=== PATIENT | female | born 1960 | race Caucasian/White ===

== ENCOUNTER 2019-12-20 00:01 | Inpatient (IN) | payer OTHER, SELFPAY ==
[2019-12-20] MEDS ORDERED: diphenhydrAMINE 50 MG/ML VIAL ONE (00:21)
[2019-12-20 01:03] LABS: Bacteria/HPF None Seen HPF (None Seen); Bilirubin Negative (Negative); Blood, Urine 1+ (Negative); Clarity Clear (Clear); Glucose, Urine (Dipstick) Normal (Negative); Ketone, Urine Negative (Negative); Leukocyte Negative Leu/uL (Negative); Nitrite Negative (Negative); Protein, Urine (Dipstick) 10 mg/dL (Neg-Trace); RBC/HPF 0-3 HPF (0-3); Squamous Epithelial None Seen HPF (0-3); Urobilinogen Normal mg/dL (Less than 2); WBC/HPF 0-3 HPF (0-3); pH, Urine 5.5 (5.0-9.0)
[2019-12-20 01:04] LABS: Specific Gravity, Urine Greater than 1.060 (1.002-1.036)
[2019-12-20 01:13] LABS: Amphetamine Detected (NotDetected); Barbiturates Screen Not Detected (NotDetected); Benzodiazepine Screen Detected (NotDetected); Cocaine Metabolite Screen Not Detected (NotDetected); Medtox Control Line Valid? VALID (VALID); Medtox Reader # READER 1; Methadone Not Detected (NotDetected); Methamphetamine Detected (NotDetected); Opiate Screen Not Detected (NotDetected); Oxycodone Screen Not Detected (NotDetected); Phencyclidine (PCP) Not Detected (NotDetected); THC/Cannabinoid Screen Detected (NotDetected); Tricyclic Screen Not Detected (NotDetected)
[2019-12-20] MEDS ORDERED: Lorazepam 1 MG TAB PO PRN (03:29)
[2019-12-20] MEDS ORDERED: Ondansetron PF 4 MG/2 ML Vial IVP PRN (03:37)
--- NOTE | 2019-12-20 03:48 | PDOC.HHP ---
Hospitalist HPI - History of Present Illness GIB History of Present Illness: Ms. De León is a 59F with a PMHX of ulcerative colitis, hepatitis C, GERD, HTN, tobacco abuse, etoh abuse, amphetamine abuse who presented to OSH for abdominal pain and BRBPR. Pt reports her abdominal pain was severe and started yesterday. Denies N/V/D. Denies lightheadedness, palpitations, dizziness. Denies CP, SOB. Pt endorses etoh abuse, last drink was two days ago. Pt unable to say how much she drinks on a daily basis. PT unsure what GI doctor she follows with and states she does not take any medications for her UC. HPI limited dt pts AMS. Pt endorses using illicit substances, but is unsure what and when she used last. From OSH, urine positive for methamphetamines and cannabinoids. In ED EKG showed NSR with no ischemic changes, CT abdomen showed liver cirrhosis and chornic wall thickening of colon. AST/ALT 26/15. T. dominic 0.4. PT/ INR wnl, etoh <10. H/H 11.7/36.1. BUN/Cr 10/1.21. Pt recieved benadryl, lorazepam, methylprednisone, zofran and fentanyl at OSH. Pt transferred to [facility] for GIB. Hospitalist ROS - Review of Systems ROS unobtainable: due to mental status Constitutional: denies: fever Eyes: denies: vision change ENT: denies: nose congestion Respiratory: denies: cough, shortness of breath Cardiovascular: denies: chest pain Gastrointestinal: reports: abdominal pain, hematochezia. denies: vomiting, diarrhea Genitourinary: denies: dysuria Neurological: denies: weakness, numbness - Medication Medications: Home medications: 1. lisinopril 40 mg 2. levothyroxine 75 mcg 3. duloxetine 60 mg 4. ASA 81 mg 5. esomephrazole 20 mg 6. promethazine 25 mg Hospitalist History - Past Medical History Cardiac: reports: HTN Gastrointestinal: reports: GERD, Inflam bowel disease Hepatobiliary: reports: Hep A/B/C (Hep C) Psych: reports: Depression Endocrine: reports: Hypothyroidism - Past Surgical History Past Surgical History: reports: Appendectomy, Cholecystectomy - Family History Family History: reports: no pertinent history - Social History Smoking Status: Current some day smoker Tobacco Type: cigarettes Alcohol: reports: Heavy Drugs: reports: marijuana, methamphetamine Activity level: independent ambulation - Exam General Appearance: NAD General - other findings: Pt agitated Eye: anicteric sclera Eye - other findings: pinpoint pupils ENT: normocephalic atraumatic, dry oral mucosa Neck: supple, symmetric, no JVD Heart: RRR, no murmur, no gallops, no rubs, normal peripheral pulses Respiratory: CTAB, no wheezes, no rales, no ronchi, normal chest expansion, no tachypnea, normal percussion Gastrointestinal: soft, non-distended, normal bowel sounds, no palpable masses, no hepatomegaly, no splenomegaly, no bruit, tender to palpation, voluntary guarding Extremities: no cyanosis, no clubbing, no edema Skin - other findings: Excoriations over upper extremitites Neurological: normal sensation to touch, no weakness, no focal deficits Musculoskeletal: normal tone, normal strength Psychiatric - other findings: AOx3, confused and agitated Hospitalist Results - Labs Lab results: Urine Ketones Negative mg/dL (Negative) 12/20/19 00:30 Urine Blood 1+ (Negative) A 12/20/19 00:30 Urine Nitrite Negative (Negative) 12/20/19 00:30 Ur Leukocyte Esterase Negative Aram/uL (Negative) 12/20/19 00:30 Urine RBC 0-3 HPF (0-3) 12/20/19 00:30 Urine WBC 0-3 HPF (0-3) 12/20/19 00:30 Ur Squamous Epith Cells None Seen HPF (0-3) 12/20/19 00:30 Urine Bacteria None Seen HPF (None Seen) 12/20/19 00:30 Hospitalist H&P A/P - Problem (1) Altered mental status Code(s): R41.82 - ALTERED MENTAL STATUS, UNSPECIFIED Status: Acute (2) GIB (gastrointestinal bleeding) Code(s): K92.2 - GASTROINTESTINAL HEMORRHAGE, UNSPECIFIED Status: Acute (3) Alcohol abuse Code(s): F10.10 - ALCOHOL ABUSE, UNCOMPLICATED Status: Acute (4) Abdominal pain Code(s): R10.9 - UNSPECIFIED ABDOMINAL PAIN Status: Acute (5) Hypertension Code(s): I10 - ESSENTIAL (PRIMARY) HYPERTENSION Status: Acute (6) Depression Code(s): F32.9 - MAJOR DEPRESSIVE DISORDER, SINGLE EPISODE, UNSPECIFIED Status : Acute (7) GERD (gastroesophageal reflux disease) Code(s): K21.9 - GASTRO-ESOPHAGEAL REFLUX DISEASE WITHOUT ESOPHAGITIS Status: Acute - Plan Plan: Ulcerative Colitis Flare: 59F hx of UC p/w 1 day of severe abdominal pain and BRBPR. Pt follows with GI but is unsure what phsyician. Does not take any medications currently for her UC , but pt unreliable historian. CT a/p showed chronic wall thickening of colonic mucosa. On exam abdomen TTP with involuntary guarding. WBC 10.6, H/H 11.7/36.1. AST/ALT 26/15. T. Dominic 0.4. Pt received methylpredinsone at OSH. PLAN: -GI consult -CRP, ESR -Empiric abx flagyl, ceftriaxone -Serial abdominal exams GIB: Hx of UC with 1 day of BRBPR. H/H 11.7/36.1. HD stable. PLAN: -Maintain two large bore IVs -H/H q6hr -Type and screen -GI consulted, recs appreciated Acute Intoxication: AMS likely 2/2 to intoxication. Utox positive for methamphentamines. Pt not currently tachycardic, no electrolyte abnormalities. Afebrile. PLAN: -ASE protocol per etoh section -vitals q4 -Supportive care Etoh abuse: Etoh abuse. Pt reports last drink 2 days [employer]. Denies hx of withdrawal seizures. AST/ALT 26/15. T. Dominic 0.4. PLAN: -ASE protocol -Ativan PRN -Mg level -Thiamine, Vitamin B12 HTN: Continue home lisinopril 40 mg Hypothyroidism: Continue home levothyroxine 75 mcg Depression: Continue home duloxetine 60 mg GERD: Pantoprazole IV DVT prophylaxis: contraindicated 2/2 GIB FULL CODE Case discussed with attending physician, Dr. Bunn.
[2019-12-20] MEDS: Dextrose 5 % And 0.9 % NaCl 1,000 ML IV SCH ×2 (04:24→13:17)
[2019-12-20] MEDS: cefTRIAXone\\ROCEPHIN 1 GM in Sodium Chloride 0.9% 100 ML IVPB SCH (04:34)
[2019-12-20 05:27] LABS: #Lymphocytes 0.6 thou/uL (1.20-3.40); #Monocytes 0.1 thou/uL (0.11-0.59); #Neutrophils 9.4 thou/uL (1.40-6.50); %Basophils 0.1 % (0.0-1.0); %Eosinophils 0.1 % (0.0-10.0); %Lymphocytes 5.9 % (21.0-51.0); %Monocytes 0.9 % (0.0-10.0); Hemoglobin 11.8 g/dL (12.0-16.0); Mean Corpuscular HGB CONC 33.2 g/dL (32.0-36.0); Mean Corpuscular Hemoglobin 31.1 pg (27.0-31.0); Mean Corpuscular Volume 93.7 fL (78.0-98.0); Mean Platelet Volume 9.1 fL (7.4-10.4); Platelet Count 126 thou/uL (130-400); RBC Distribution Width 12.3 % (11.5-14.5); Red Blood Cell (RBC) Count 3.81 mill/uL (4.20-5.40); White Blood Cell (WBC) Count 10.1 thou/uL (4.8-10.8)
[2019-12-20 05:48] LABS: ALT (SGPT) 11 U/L (8-55); AST (SGOT) 21 U/L (5-34); Albumin 3.6 g/dL (3.5-5.0); Alkaline Phosphatase 74 U/L (40-110); Anion Gap 13 mmol/L (10-20); BUN (Urea Nitrogen) 8 mg/dL (9.8-20.1); Bilirubin, Total 0.4 mg/dL (0.2-1.2); Calc. Creatinine Clearance 90 mL/min (70-130); Calcium 8.1 mg/dL (7.8-10.44); Carbon Dioxide 24 mmol/L (22-29); Chloride 105 mmol/L (98-107); Estimated GFR-MDRD 73; Globulin 2.9 g/dL (2.4-3.5); Glucose 169 mg/dL (70-105); Potassium 3.8 mmol/L (3.5-5.1); Protein, Total 6.5 g/dL (6.0-8.3); Sodium 138 mmol/L (136-145)
[2019-12-20] MEDS: metroNIDAZOLE 500 MG in Premix Bag 1 BAG IVPB SCH ×3 (06:27→21:05)
[2019-12-20] MEDS: Ketorolac Tromethamine 30 MG/ML VIAL IVP PRN ×2 (09:16→23:14)
[2019-12-20] MEDS: Cyanocobalamin (Vitamin B-12) 1,000 MCG TAB PO SCH ×2 (09:17→09:29)
[2019-12-20] MEDS: Thiamine 100 MG TAB PO SCH ×2 (09:17→09:29)
[2019-12-20 11:43] LABS: SARS-CoV-2 MS2 Positive; SARS-CoV-2 N Gene Negative; SARS-CoV-2 S Gene Negative; SARS-CoV-2 by NAA Not Detected (NotDetected); SARS-CoV-2 orf1ab Negative
[2019-12-20] MEDS: Morphine 2 MG/ML VIAL SLOW IVP PRN ×2 (15:42→20:30)
[2019-12-20 16:03] LABS: Hemoglobin 11.7 g/dL (12.0-16.0)
[2019-12-20 21:37] LABS: Hemoglobin 11.4 g/dL (12.0-16.0)
--- NOTE | 2019-12-20 21:47 | EKG ---
Test Reason : Blood Pressure : / mmHG Vent. Rate : 090 BPM Atrial Rate : 090 BPM P-R Int : 158 ms QRS Dur : 088 ms QT Int : 400 ms P-R-T Axes : 059 052 066 degrees QTc Int : 489 ms Normal sinus rhythm Prolonged QT Abnormal ECG No previous ECGs available Confirmed by Chirag MORALES ([id number]) on 12/20/2019 9:47:07 PM Referred By: KIA Confirmed By:Chirag MORALES
--- NOTE | 2019-12-20 21:47 | EKG ---
Test Reason : Blood Pressure : / mmHG Vent. Rate : 084 BPM Atrial Rate : 084 BPM P-R Int : 152 ms QRS Dur : 086 ms QT Int : 410 ms P-R-T Axes : 041 030 047 degrees QTc Int : 484 ms Normal sinus rhythm Prolonged QT Abnormal ECG When compared with ECG of 20-DEC-2019 04:20, (Unconfirmed) No significant change was found Confirmed by Chirag MORALES ([id number]) on 12/20/2019 9:47:14 PM Referred By: LAMONT SOLORIO Confirmed By:Chirag MORALES
--- NOTE | 2019-12-20 23:49 | CON ---
DATE OF CONSULTATION: 12/20/2019 REASON FOR CONSULTATION: Hematochezia, history of ulcerative colitis. CONSULTING PROVIDER: Ms. Heydi Fisher PA-C. HISTORY OF PRESENT ILLNESS: The patient is a 59-year-old female, with past medical history of chronic hepatitis C infection, GERD, hypertension, tobacco abuse, alcohol abuse, amphetamine abuse, Schrader's esophagus, and ulcerative colitis, presenting with complaints of abdominal pain and hematochezia. She states that she was in her usual state of health until approximately 2 days ago when she began having increased suprapubic abdominal pain characterized as a sharp/stabbing type sensation, was nonradiating, constant, reaching a 10/10 in severity. The pain was worse with certain movements and straining to have a bowel movement, better with having a bowel movement and the pain medication she has received while she has been here in the hospital. With the onset of this abdominal pain, it was also associated with increased nausea without vomiting, sore throat, and weight gain over the last few weeks. She also complains of increased hematochezia characterized as bright red blood per rectum in small amounts with most of the blood seen mixed with stool. With the onset of the severe abdominal pain, it prompted her to seek healthcare assistance and within the [facility] ER, she was noted to have a mild anemia in addition to CT scan showing abnormal thickening of the wall of the colon concerning for an ulcerative colitis flare, for which she was ultimately admitted to the hospital for further evaluation. Currently, she denies any vomiting, melena, hematemesis, dysphagia, odynophagia, constipation, or weight loss. Of note, the patient was diagnosed with ulcerative colitis approximately 15 to 20 years ago when she was having presenting symptoms of abdominal pain, hematochezia, and diarrhea. She subsequently had a colonoscopy which confirmed the diagnosis of colitis on imaging and for which the patient thinks she might have been placed on steroids, but could not remember. This medication was not continued on a long-term basis and with resolution of her symptoms, she did not see an outpatient GI physician. Over the next 10 to 15 years, she would have flares every 3 to 6 years with the last flare being approximately 5 to 6 years ago where she was admitted to the hospital and given antibiotics and steroids in light of possible ulcerative colitis. She has had multiple colonoscopies in the past, but could not remember any of the findings from any of them, nor could she confirm with 100% certainty that she had been diagnosed with ulcerative colitis. REVIEW OF SYSTEMS: A 10-category review of systems was obtained with all responses negative, except for the pertinent positives as listed in the HPI. PAST MEDICAL HISTORY: As per HPI. PAST SURGICAL HISTORY: Appendectomy and cholecystectomy. FAMILY HISTORY: Denies any GI malignancies. SOCIAL HISTORY: Smokes approximately one-half pack of cigarettes daily. Drinks approximately 2 to 3 drinks daily as well. Does report use of recent marijuana, but denies the use of methamphetamine. OUTPATIENT MEDICATIONS: Reviewed. ALLERGIES: CODEINE AND ZOSYN. PHYSICAL EXAMINATION: VITAL SIGNS: Temperature 98.5, pulse 90, blood pressure 141/81, respiratory rate 16, and saturating 99% on room air. GENERAL: The patient is lying in bed, in no acute distress. Alert and oriented x4. HEENT: Normocephalic and atraumatic. NECK: Supple. No JVD or scleral icterus noted. CARDIOVASCULAR: Regular rate and rhythm, with no discernible murmurs, gallops, or rubs. RESPIRATORY: Clear to auscultation bilaterally, with no discernible wheezes or rales. ABDOMEN: Normoactive bowel sounds. Soft, nondistended. Tenderness to palpation in the lower abdominal quadrants. EXTREMITIES: No cyanosis, clubbing, or edema. LABORATORY DATA: CBC with a white blood cell count of 10.1, hemoglobin 12, hematocrit 36.5, and platelets 126. Chemistry with a sodium of 138, potassium 3.8, chloride 105, CO2 of 24, BUN 8, creatinine 0.81, glucose 169, AST 21, ALT 11, alkaline phosphatase 74, and total bilirubin 0.4. Drug of abuse screen was positive for amphetamines, methamphetamines, benzodiazepines, and marijuana. IMAGING DATA: CT scan of the abdomen and pelvis was obtained on December 19, 2019, which showed some patchy areas of ground-glass opacities in the right middle lobe. The patient was noted to have surgical change consistent with postcholecystectomy. Nodularity of the liver was all suspicious for cirrhosis of the liver, which was also mentioned on a prior CT approximately a year ago. The small bowel loops were not abnormally dilated. There was thickening of the wall of the colon with a few prominent periaortic lymph nodes measuring up to 7 mm in size. ASSESSMENT AND PLAN: The patient is a 59-year-old female, with past medical history of chronic HCV infection, gastroesophageal reflux disease, Schrader's esophagus, hypertension, tobacco abuse, alcohol abuse, amphetamine abuse, and ulcerative colitis, presenting with abdominal pain and hematochezia concerning for an ulcerative colitis flare. Abdominal pain/hematochezia/ulcerative colitis flare. The patient is presenting with acute onset of increased abdominal pain, increased suprapubic abdominal pain characterized as a sharp/stabbing size sensation reaching a severity of 10/10. This was associated with increased hematochezia and when compared to her symptoms in the past are consistent with a prior ulcerative colitis flare. However, over the last 15 to 20 years, the patient has not been on any medications for her ulcerative colitis with flares only every 3 to 6 years with her last flare being 5 to 6 years ago. Based on her current clinical history, lack of long-term treatment for her ulcerative colitis, it is unclear if she was actually diagnosed with ulcerative colitis in the first place. With her concurrent use of amphetamine/methamphetamines, it could potentially generate intestinal ischemia resulting in bowel wall thickening, colitis, as well as diarrhea, abdominal pain, and hematochezia. However, with her stated history of ulcerative colitis, they cannot be ignored as well, with the most likely reasons for ulcerative colitis flare being either infection or noncompliance with medications. RECOMMENDATIONS: 1. We would obtain infectious stool studies for possible infectious etiology contributing to her ulcerative colitis flare. 2. Since the antibiotics have been started, we would complete a total duration of therapy approximately seven days on both ciprofloxacin and Flagyl. 3. Pain control per primary team. 4. We would obtain records from [facility] for her last ulcerative colitis flare and confirmation of the diagnosis. 5. We will consider placing the patient on prednisone 40 mg daily, if infectious stool studies are negative (which they likely are given premature administration of antibiotics). 6. Highly recommend cessation of all tobacco and marijuana as it can induce ulcerative colitis flares. We will continue to follow. Please call with any questions. Job ID: [id number]
[2019-12-21] MEDS: Morphine 2 MG/ML VIAL SLOW IVP PRN ×6 (00:51→23:44)
[2019-12-21] MEDS: cefTRIAXone\\ROCEPHIN 1 GM in Sodium Chloride 0.9% 100 ML IVPB SCH (04:38)
[2019-12-21 04:52] LABS: #Lymphocytes 1.3 thou/uL (1.20-3.40); #Monocytes 0.5 thou/uL (0.11-0.59); %Basophils 0.4 % (0.0-1.0); %Eosinophils 0.3 % (0.0-10.0); %Lymphocytes 19.1 % (21.0-51.0); %Monocytes 7.3 % (0.0-10.0); %Neutrophils 72.9 % (42.0-75.0); Mean Corpuscular HGB CONC 33.1 g/dL (32.0-36.0); Mean Corpuscular Hemoglobin 31.4 pg (27.0-31.0); Mean Corpuscular Volume 94.8 fL (78.0-98.0); Mean Platelet Volume 9.8 fL (7.4-10.4); Platelet Count 118 thou/uL (130-400); RBC Distribution Width 12.4 % (11.5-14.5); Red Blood Cell (RBC) Count 3.49 mill/uL (4.20-5.40); White Blood Cell (WBC) Count 6.9 thou/uL (4.8-10.8)
[2019-12-21] MEDS: metroNIDAZOLE 500 MG in Premix Bag 1 BAG IVPB SCH ×3 (05:58→20:22)
[2019-12-21] MEDS: Cyanocobalamin (Vitamin B-12) 1,000 MCG TAB PO SCH (09:37)
[2019-12-21] MEDS: Thiamine 100 MG TAB PO SCH (09:37)
--- NOTE | 2019-12-21 09:57 | PDOC.HOSPP ---
- Subjective Encounter Date: 12/21/19 Encounter Time: 07:00 Subjective: Patient seen for follow-up regarding Crohn's disease flare. Reports abdominal bloating. Denies fevers. Had a small bowel movement earlier today. - Objective Vital Signs & Weight: Vital Signs (12 hours) Temp Pulse Resp BP BP Pulse Ox 12/21/19 08:00 98.4 F 87 14 125/76 95 12/21/19 04:15 98.5 F 77 18 135/74 95 12/21/19 02:00 135/74 Weight Admit Weight 166 lb 11.2 oz Weight 171 lb 8 oz I&O: 12/20/19 12/21/19 12/22/19 06:59 06:59 06:59 Intake Total 920 Output Total 200 Balance 720 Result Diagrams: 12/21/19 04:08 12/20/19 05:16 Additional Labs: I reviewed patient's labs and MAR EKG Reviewed by me: Yes (Telemetry: NSR) Hospitalist ROS - Review of Systems Constitutional: denies: fever, chills, sweats, weakness, malaise Cardiovascular: denies: chest pain, palpitations, orthopnea, paroxysmal noc. dyspnea, edema, light headedness Gastrointestinal: reports: abdominal pain, diarrhea, hematochezia. denies: nausea, vomiting, constipation, melena Genitourinary: denies: dysuria, frequency, incontinence, hematuria, retention Musculoskeletal: denies: neck pain, shoulder pain, arm pain, back pain, hand pain, leg pain, foot pain Skin: denies: rash, lesions, kendall, bruising - Medication Medications: Active Medications Generic Name Dose Route Start Last Admin Trade Name Cristina PRN Reason Stop Dose Admin Cyanocobalamin 1,000 mcg 12/20/19 09:00 12/21/19 09:37 Vitamin B-12 PO 1,000 mcg DAILY BRIANNA Administration Metronidazole 500 mg/ Device 100 mls @ 100 mls/hr 12/20/19 06:00 12/21/19 05: 58 IVPB 100 mls Q8HR BRIANNA Administration Ceftriaxone Sodium 1 gm/ 100 mls @ 200 mls/hr 12/20/19 05:00 12/21/19 04:38 Sodium Chloride IVPB 100 mls Q24HR BRIANNA Administration Ketorolac Tromethamine 15 mg 12/20/19 08:47 12/20/19 23:14 Toradol IVP 12/25/19 08:48 15 mg Q8H PRN Administration Pain Morphine Sulfate 2 mg 12/20/19 13:50 12/21/19 09:37 Morphine SLOW IVP 2 mg Q4H PRN Administration Pain Sodium Chloride 10 ml 12/20/19 09:00 12/21/19 09:51 Flush - Normal Saline IVF 10 ml Q12HR BRIANNA Administration Thiamine HCl 100 mg 12/20/19 09:00 12/21/19 09:37 Thiamine PO 100 mg DAILY BRIANNA Administration - Exam General Appearance: awake alert Eye: anicteric sclera ENT: normocephalic atraumatic, moist mucosa Neck: supple, symmetric, no thyromegaly, no lymphadenopathy Heart: RRR, no gallops, no rubs, normal peripheral pulses Respiratory: CTAB, no wheezes, no rales, no ronchi Gastrointestinal: soft, normal bowel sounds, no guarding, no rigidity, tender to palpation, distended Extremities: no cyanosis Skin: normal turgor Psychiatric: normal affect, normal behavior, oriented to person, oriented to place Hosp A/P (1) Exacerbation of Crohn's disease Code(s): K50.90 - CROHN'S DISEASE, UNSPECIFIED, WITHOUT COMPLICATIONS Status: Acute (2) Alcohol abuse Code(s): F10.10 - ALCOHOL ABUSE, UNCOMPLICATED Status: Chronic (3) Depression Code(s): F32.9 - MAJOR DEPRESSIVE DISORDER, SINGLE EPISODE, UNSPECIFIED Status : Chronic (4) GERD (gastroesophageal reflux disease) Code(s): K21.9 - GASTRO-ESOPHAGEAL REFLUX DISEASE WITHOUT ESOPHAGITIS Status: Chronic (5) Hypertension Code(s): I10 - ESSENTIAL (PRIMARY) HYPERTENSION Status: Chronic - Plan Continue ceftriaxone and metronidazole. Follow stool studies. Hypertension is controlled. Continue ASE protocol. Patient counseled regarding cessation of recreational drugs. Depression mild, stable. Patient has been counseled regarding cessation of tobacco use, start nicotine replacement therapy.
[2019-12-21] MEDS ORDERED: predniSONE 20 MG TAB PO SCH (10:45)
--- NOTE | 2019-12-21 10:58 | PRG ---
DATE OF SERVICE: REASON FOR CONSULTATION: Hematochezia, history of ulcerative colitis. SUBJECTIVE: The patient states that she continues to have lower abdominal pain today, but now she is having generalized bloating in the entire abdomen. She has been able to tolerate a clear liquid without any difficulty, but feels that her pain medication has not been adequately covering her abdominal pain. She did have one very small volume bowel movement earlier today with only blood streaks. Otherwise, she denies any nausea, vomiting, fevers, chills, hematemesis, or melena. OBJECTIVE: VITAL SIGNS: Temperature 98.4, pulse 87, blood pressure 125/76, respiratory rate 14, saturating 95% on room air. GENERAL: This patient is lying in bed, in no acute distress. Alert and oriented x4. CARDIOVASCULAR: Regular rate and rhythm. RESPIRATORY: Clear to auscultation bilaterally. ABDOMEN: Normoactive bowel sounds. Soft, nondistended. Tenderness to palpation in the lower abdominal quadrants to light palpation. Mild tenderness to palpation in the upper abdominal quadrants to deep palpation. EXTREMITIES: No cyanosis, clubbing, or edema. LABORATORY DATA: CBC with a white blood cell count of 6.9, hemoglobin 11, hematocrit 33.1, platelets 118. ESR 15, CRP 2.04. IMAGING DATA: No current GI imaging is available for review. ASSESSMENT AND PLAN: The patient is a 59-year-old female with past medical history of chronic hepatitis C virus infection, gastroesophageal reflux disease, Schrader's esophagus, hypertension, tobacco abuse, alcohol abuse, amphetamine abuse, and a history of ulcerative colitis, presenting with abdominal pain and hematochezia concerning for an ulcerative colitis flare. Abdominal pain/hematochezia/ulcerative colitis flare. The patient initially presented with increased suprapubic abdominal pain, diarrhea and hematochezia consistent with "flares of her ulcerative colitis" in the past. At this time, the patient is a very poor historian in regarding to her ulcerative colitis, where the patient has not been on medication for the vast majority of this diagnosis, but has not had any clinical symptoms. Based on her current history taking, it is unclear if she was accurately diagnosed with ulcerative colitis in the first place with the need to obtain outside records paramount. However, she does have an elevated CRP in addition to imaging showing thickening of the colonic wall, all consistent with an ulcerative colitis flare. She was subsequently placed on antibiotics prior to obtaining infectious stool studies with the likelihood of obtaining positive infectious pathogen less likely at this time. RECOMMENDATIONS: 1. We would obtain infectious stool studies for possible infectious etiology to help further guide plan of care. 2. Since the antibiotics have been started and we have no discernible pathogen to specifically target, I would complete a total duration of antibiotics for approximately seven days on Cipro and Flagyl. 3. Pain control per primary team. 4. We will attempt to obtain records from [facility] to help confirm the diagnosis of UC. 5. Since the patient has not been able to have a bowel movement to confirm the presence of a pathogen, most likely her stool is sterile, we will place her on a short prednisone taper starting at 40 mg x3 days, 30 mg x3 days, 20 mg x3 days and 10 mg x3 days with cessation of prednisone after that. 6. Highly recommend cessation of all tobacco, marijuana, and methamphetamine use. We will continue to follow. Please call with any questions. Job ID: [id number]
[2019-12-21] MEDS: Nicotine 21 MG PATCH TD SCH ×2 (11:16→11:28)
[2019-12-21 14:02] VITALS: BMI 27.6
[2019-12-21] MEDS: rOPINIRole HCl 0.25 MG TAB PO SCH ×2 (14:33→20:22)
[2019-12-21] MEDS: Ketorolac Tromethamine 30 MG/ML VIAL IVP PRN (20:42)
[2019-12-22] MEDS: Morphine 2 MG/ML VIAL SLOW IVP PRN ×5 (03:43→21:09)
[2019-12-22] MEDS: cefTRIAXone\\ROCEPHIN 1 GM in Sodium Chloride 0.9% 100 ML IVPB SCH (03:44)
[2019-12-22 04:24] LABS: #Lymphocytes 1.5 thou/uL (1.20-3.40); #Monocytes 0.8 thou/uL (0.11-0.59); #Neutrophils 6.3 thou/uL (1.40-6.50); %Basophils 0.2 % (0.0-1.0); %Eosinophils 0.2 % (0.0-10.0); %Lymphocytes 17.4 % (21.0-51.0); %Neutrophils 73.2 % (42.0-75.0); Hemoglobin 11.5 g/dL (12.0-16.0); Mean Corpuscular HGB CONC 33.2 g/dL (32.0-36.0); Mean Corpuscular Hemoglobin 32.1 pg (27.0-31.0); Mean Corpuscular Volume 96.9 fL (78.0-98.0); Mean Platelet Volume 9.3 fL (7.4-10.4); Platelet Count 118 thou/uL (130-400); RBC Distribution Width 12.4 % (11.5-14.5); Red Blood Cell (RBC) Count 3.58 mill/uL (4.20-5.40); White Blood Cell (WBC) Count 8.6 thou/uL (4.8-10.8)
[2019-12-22] MEDS: Ketorolac Tromethamine 30 MG/ML VIAL IVP PRN (05:51)
[2019-12-22] MEDS: Levothyroxine Sodium 75 MCG TAB PO SCH (05:51)
[2019-12-22] MEDS: metroNIDAZOLE 500 MG in Premix Bag 1 BAG IVPB SCH (05:52)
[2019-12-22] MEDS: Lisinopril 20 MG TAB PO SCH (09:02)
[2019-12-22] MEDS: Cyanocobalamin (Vitamin B-12) 1,000 MCG TAB PO SCH (09:02)
[2019-12-22] MEDS: DULoxetine 60 MG CAP PO SCH (09:02)
[2019-12-22] MEDS: rOPINIRole HCl 0.25 MG TAB PO SCH ×3 (09:03→20:22)
[2019-12-22] MEDS: NIFEdipine XL 30 MG TAB PO SCH (09:03)
[2019-12-22] MEDS: Thiamine 100 MG TAB PO SCH (09:04)
[2019-12-22] MEDS ORDERED: predniSONE 20 MG TAB PO SCH (09:45)
--- NOTE | 2019-12-22 09:53 | PRG ---
DATE OF SERVICE: 12/22/2019 SUBJECTIVE: Ms. De León says she is feeling a lot better today. Abdominal discomfort persists, but has improved, is more diffuse today. She is tolerating clear liquid diet. She had 1 bowel movement overnight, which was nonbloody. Stool studies are negative for pathogens to this point. OBJECTIVE: VITAL SIGNS: Temperature 97.9, pulse 69, blood pressure 172/83, 98% oxygen saturation on room air. GENERAL: No acute distress. HEART: Regular rate and rhythm. LUNGS: Clear to auscultation bilaterally. ABDOMEN: Mild distention, tympanitic to percussion. Bowel sounds present. Soft, nontender to palpation. EXTREMITIES: No peripheral edema. LABORATORY STUDIES: COVID negative. CRP down to 2.04. WBC 8.6, hemoglobin 11.5, platelets 118. Clostridium difficile negative. Campylobacter negative. E coli shiga toxin negative. ASSESSMENT AND PLAN: 1. Ulcerative colitis flare. 2. Hematochezia, improved. 3. Abdominal pain, improving. I agree with Dr. Fried's plan as outlined in his note from yesterday to give a short prednisone taper of 40 mg daily x3 days, then 30 mg daily x3 days, then 20 mg daily x3 days, then 10 mg daily x3 days, then stop. I think the antibiotics can be discontinued. Advance diet as tolerated today. I think if she continues to have symptomatic improvement, she could be discharged from the hospital either later today or tomorrow to follow up as an outpatient closer to home. Job ID: [id number]
[2019-12-22] MEDS: Nicotine 21 MG PATCH TD SCH (11:11)
--- NOTE | 2019-12-22 12:05 | PDOC.HOSPP ---
- Subjective Encounter Date: 12/22/19 Encounter Time: 07:00 Subjective: Patient seen for follow-up regarding ulcerative colitis flare. Reports feeling better. Denies any chest pain. Abdominal pain is better. - Objective Vital Signs & Weight: Vital Signs (12 hours) Temp Pulse Resp BP Pulse Ox 12/22/19 11:56 97.7 F 78 16 159/90 H 99 12/22/19 03:52 97.9 F 69 18 172/83 H 98 Weight Admit Weight 166 lb 11.2 oz Weight 174 lb I&O: 12/21/19 12/22/19 12/23/19 06:59 06:59 06:59 Intake Total 920 960 Output Total 200 Balance 720 960 Result Diagrams: 12/22/19 03:59 12/20/19 05:16 Additional Labs: I reviewed patient's labs and MAR EKG Reviewed by me: Yes (Telemetry-normal sinus rhythm) Hospitalist ROS - Review of Systems Cardiovascular: denies: chest pain, palpitations, orthopnea, paroxysmal noc. dyspnea, edema, light headedness Gastrointestinal: reports: abdominal pain, hematochezia. denies: nausea, vomiting, diarrhea, constipation, melena - Medication Medications: Active Medications Generic Name Dose Route Start Last Admin Trade Name Freq PRN Reason Stop Dose Admin Cyanocobalamin 1,000 mcg 12/20/19 09:00 12/22/19 09:02 Vitamin B-12 PO 1,000 mcg DAILY BRIANNA Administration Duloxetine HCl 60 mg 12/22/19 09:00 12/22/19 09:02 Cymbalta PO 60 mg DAILY BRIANNA Administration Ketorolac Tromethamine 15 mg 12/20/19 08:47 12/22/19 05:51 Toradol IVP 12/25/19 08:48 15 mg Q8H PRN Administration Pain Levothyroxine Sodium 75 mcg 12/22/19 06:00 12/22/19 05:51 Synthroid PO 75 mcg 0600 BRIANNA Administration Lisinopril 40 mg 12/22/19 09:00 12/22/19 09:02 Zestril PO 40 mg DAILY BRIANNA Administration Morphine Sulfate 2 mg 12/20/19 13:50 12/22/19 09:04 Morphine SLOW IVP 2 mg Q4H PRN Administration Pain Nicotine 21 mg 12/21/19 11:00 12/22/19 11:11 Nicoderm Patch TD Not Given Q24HR BRIANNA Nifedipine 30 mg 12/22/19 09:00 12/22/19 09:03 Procardia Xl PO 30 mg DAILY BRIANNA Administration Ropinirole HCl 0.25 mg 12/21/19 15:00 12/22/19 09:03 Requip PO 0.25 mg TID BRIANNA Administration Sodium Chloride 10 ml 12/20/19 09:00 12/22/19 09:03 Flush - Normal Saline IVF 10 ml Q12HR BRIANNA Administration Thiamine HCl 100 mg 12/20/19 09:00 12/22/19 09:04 Thiamine PO 100 mg DAILY BRIANNA Administration - Exam General Appearance: awake alert Eye: anicteric sclera ENT: normocephalic atraumatic Neck: supple Heart: RRR Respiratory: CTAB Gastrointestinal: soft, no guarding, no rigidity, tender to palpation Skin: no rashes Psychiatric: normal affect, normal behavior Hosp A/P (1) Exacerbation of Crohn's disease Code(s): K50.90 - CROHN'S DISEASE, UNSPECIFIED, WITHOUT COMPLICATIONS Status: Acute (2) Alcohol abuse Code(s): F10.10 - ALCOHOL ABUSE, UNCOMPLICATED Status: Chronic (3) Depression Code(s): F32.9 - MAJOR DEPRESSIVE DISORDER, SINGLE EPISODE, UNSPECIFIED Status : Chronic (4) GERD (gastroesophageal reflux disease) Code(s): K21.9 - GASTRO-ESOPHAGEAL REFLUX DISEASE WITHOUT ESOPHAGITIS Status: Chronic (5) Hypertension Code(s): I10 - ESSENTIAL (PRIMARY) HYPERTENSION Status: Chronic - Plan Stool Campylobacter and Shiga toxin tests are negative. C. difficile test is negative. Discontinue antibiotics. Start steroids for ulcerative colitis flare. Hypertension is controlled. Patient is on ASE protocol. Depression mild, stable. Continue nicotine replacement therapy.
[2019-12-23] MEDS: Morphine 2 MG/ML VIAL SLOW IVP PRN ×4 (01:10→13:26)
[2019-12-23] MEDS: Levothyroxine Sodium 75 MCG TAB PO SCH (05:00)
[2019-12-23] MEDS ORDERED: predniSONE 20 MG TAB PO SCH (08:00)
[2019-12-23 08:36] LABS: #Lymphocytes 2.8 thou/uL (1.20-3.40); #Monocytes 0.6 thou/uL (0.11-0.59); #Neutrophils 7.4 thou/uL (1.40-6.50); %Basophils 0.4 % (0.0-1.0); %Eosinophils 0.4 % (0.0-10.0); %Lymphocytes 25.6 % (21.0-51.0); %Monocytes 5.8 % (0.0-10.0); %Neutrophils 67.8 % (42.0-75.0); Mean Corpuscular HGB CONC 32.6 g/dL (32.0-36.0); Mean Corpuscular Hemoglobin 30.7 pg (27.0-31.0); Mean Corpuscular Volume 94.3 fL (78.0-98.0); Mean Platelet Volume 8.7 fL (7.4-10.4); Platelet Count 165 thou/uL (130-400); RBC Distribution Width 12.6 % (11.5-14.5); Red Blood Cell (RBC) Count 3.91 mill/uL (4.20-5.40); White Blood Cell (WBC) Count 10.9 thou/uL (4.8-10.8)
[2019-12-23 08:53] LABS: ALT (SGPT) Less than 7 U/L (8-55); AST (SGOT) 10 U/L (5-34); Albumin 3.3 g/dL (3.5-5.0); Alkaline Phosphatase 66 U/L (40-110); Anion Gap 8 mmol/L (10-20); BUN (Urea Nitrogen) 6 mg/dL (9.8-20.1); Bilirubin, Total 0.2 mg/dL (0.2-1.2); Calc. Creatinine Clearance 93 mL/min (70-130); Calcium 8.4 mg/dL (7.8-10.44); Carbon Dioxide 28 mmol/L (22-29); Chloride 105 mmol/L (98-107); Estimated GFR-MDRD 73; Globulin 2.8 g/dL (2.4-3.5); Glucose 96 mg/dL (70-105); Potassium 3.8 mmol/L (3.5-5.1); Protein, Total 6.1 g/dL (6.0-8.3); Sodium 137 mmol/L (136-145)
[2019-12-23] MEDS: Cyanocobalamin (Vitamin B-12) 1,000 MCG TAB PO SCH (09:14)
[2019-12-23] MEDS: DULoxetine 60 MG CAP PO SCH (09:15)
[2019-12-23] MEDS: Lisinopril 20 MG TAB PO SCH (09:16)
[2019-12-23] MEDS: Thiamine 100 MG TAB PO SCH (09:17)
[2019-12-23] MEDS: NIFEdipine XL 30 MG TAB PO SCH (09:17)
[2019-12-23] MEDS: rOPINIRole HCl 0.25 MG TAB PO SCH (09:18)
[2019-12-23] MEDS: Nicotine 21 MG PATCH TD SCH (13:30)
[2019-12-23 14:33] VITALS: BP 154/107; TEMP 98.2
--- NOTE | 2019-12-24 02:12 | DIS ---
DATE OF ADMISSION: 12/20/2019 DATE OF DISCHARGE: 12/23/2019 PRIMARY CARE PROVIDER: Unknown. DISCHARGE DIAGNOSES: 1. Ulcerative colitis flare. 2. Recreational drug use. 3. COVID-19 test negative. CONDITION OF PATIENT ON THE DAY OF DISCHARGE: Stable. I assessed Ms. De León on the day of discharge. She denies any chest pain or shortness of breath. Vital signs are stable. S1 and S2 are heard, regular. Lungs are clear to auscultation bilaterally. DISCHARGE MEDICATIONS: She has been started on, 1. Prednisone 40 mg daily x1 day, then 30 mg daily x3 days, then 20 mg daily x3 days, then 10 mg daily x3 days. 2. As well as nicotine patch, 21 mg daily. 3. She has also been started on thiamine 100 mg daily. Otherwise, no change was made to her pre-admission home medications, which include. 4. Duloxetine 60 mg daily. 5. Nexium 20 mg daily. 6. Levothyroxine 75 mcg daily. 7. Lisinopril 40 mg daily. 8. Nifedipine ER 30 mg daily. 9. Phenergan 25 mg daily. 10. Ropinirole 0.25 mg 3 times a day. 11. Carafate 1 g daily. CONSULTATIONS DURING THIS HOSPITALIZATION: Gastroenterology, Dr. Fried. HOSPITAL COURSE: Ms. De León is a pleasant 59-year-old lady, who was admitted to [facility] on December 20, 2019 for ulcerative colitis flare. She was initially started on antibiotics too, since it was unclear whether this was secondary to an infectious etiology. Clostridium difficile test was negative. Campylobacter and Shiga toxin tests were negative. Preliminary stool culture is negative. She is advised to follow up with primary care provider for final stool culture result. Antibiotics were discontinued. She was started on steroids with improvement in her symptoms. She is being discharged home in a stable condition. On the day of discharge, she has sodium 137, potassium 3.8, creatinine 0.81. White count 10,900, hemoglobin 12, and platelet count 165,000. The patient has been advised to stop alcohol abuse, tobacco use, and recreational drug use. Many thanks for allowing me to participate in your patient's care. Please feel free to contact me with any questions or concerns. DISCHARGE DESTINATION: Home. ACTIVITY: No restrictions. DIET: Heart healthy. Total amount of time spent coordinating this discharge: 32 minutes. Job ID: [id number]
[2019-12-25] MEDS ORDERED: predniSONE 20 MG TAB PO SCH (08:00)
[2019-12-28] MEDS ORDERED: predniSONE 20 MG TAB PO SCH (08:00)
[2019-12-31] MEDS ORDERED: predniSONE 20 MG TAB PO SCH (08:00)
== END 2019-12-23 16:07 | disposition home or self-care (01) | DRG 386 ==
LOC: ERS 00:01 → T4-A 02:08 → 2NO 05:53 → T4-A 12-22 16:31
PROVIDERS: ADMIT Internal Medicine; ATTEND Internal Medicine
DX: K51.911 Ulcerative colitis, unspecified with rectal bleeding (principal); F32.0 Major depressive disorder, single episode, mild; Z20.828 Contact with and (suspected) exposure to other viral communicable diseases; G25.81 Restless legs syndrome; E03.9 Hypothyroidism, unspecified; K21.9 Gastro-esophageal reflux disease without esophagitis; B18.2 Chronic viral hepatitis C; I10 Essential (primary) hypertension; F15.10 Other stimulant abuse, uncomplicated; F10.10 Alcohol abuse, uncomplicated; F32.9 Major depressive disorder, single episode, unspecified; F15.129 Other stimulant abuse with intoxication, unspecified; K22.70 Barrett's esophagus without dysplasia; F17.210 Nicotine dependence, cigarettes, uncomplicated; Z88.5 Allergy status to narcotic agent; Z79.890 Hormone replacement therapy; Z79.82 Long term (current) use of aspirin; Z79.899 Other long term (current) drug therapy; Z90.49 Acquired absence of other specified parts of digestive tract; Z88.1 Allergy status to other antibiotic agents
CPT/HCPCS: 36415; 51701; 80053; 80306; 81003; 81015; 83735; 85025; 85652; 86140; 86850; 86900; 86901; 87045; 87046; 87324; 87427; 87449; 87635; 93005; 93010; 96374; J0696; J1200; J1885; J2270; J3490; J7512; U0003